=== PATIENT | male | born 1965 | race Caucasian/White ===

== ENCOUNTER 2024-04-14 08:41 | Inpatient (IN) | payer OTHER ==
[~2024-04-14] VITALS: Ht 162.6 cm; Wt 47.6 kg
[2024-04-14] MEDS ORDERED: MAGN400O6 PO (09:35)
[2024-04-14] MEDS ORDERED: FOLI0.4T6 PO (09:35)
[2024-04-14] MEDS ORDERED: ONDA-97 PO (09:35)
[2024-04-14] MEDS ORDERED: QUET25TA PO (09:35)
[2024-04-14] MEDS ORDERED: METF-441 PO (09:35)
[2024-04-14] MEDS ORDERED: CRAN3875 PO (09:35)
[2024-04-14] MEDS ORDERED: FERR300L PO (09:35)
[2024-04-14] MEDS ORDERED: ACET-868 PO (09:35)
[2024-04-14] MEDS ORDERED: ACET-2605 PO (09:35)
[2024-04-14] MEDS ORDERED: TAMS-12 PO (09:35)
[2024-04-14] MEDS ORDERED: IPRA3AMP22 IH (09:35)
[2024-04-14] MEDS ORDERED: SENN-18 PO (09:35)
[2024-04-14] MEDS ORDERED: ZINC220C6 PO (09:35)
[2024-04-14] MEDS ORDERED: PROTEIN LIQUID PO (09:35)
[2024-04-14] MEDS ORDERED: DOCU100T2 PO (09:35)
[2024-04-14] MEDS ORDERED: ACET-2030 PO (09:35)
[2024-04-14] MEDS ORDERED: LOSA25TA27 PO (09:35)
[2024-04-14] MEDS ORDERED: MULT-225 PO (09:35)
[2024-04-14] MEDS ORDERED: NA P133E RC (09:35)
[2024-04-14] MEDS ORDERED: ENOX40DI9 SQ (09:35)
[2024-04-14] MEDS ORDERED: BENZ-13 PO (09:35)
[2024-04-14] MEDS ORDERED: BISA10SU11 RC (09:35)
[2024-04-14] MEDS ORDERED: POLY17PO4 PO (09:35)
[2024-04-14] MEDS ORDERED: ASCO-352 PO (09:35)
[2024-04-14 09:49] LABS: BASOPHILS % (AUTO) 0.4 % (0.0-2.0); EOSINOPHILS % (AUTO) 0.1 % (0.0-6.0); HEMATOCRIT 24 % (39-51); HEMOGLOBIN 8.1 g/dL (13.5-17.5); LYMPHOCYTES # (AUTO) 1.2 K/uL (0.8-4.8); MEAN CORPUSCULAR HEMOGLOBIN 31 PG (26.0-33.0); MEAN CORPUSCULAR HGB CONC 33 g/dl (31.0-36.0); MEAN CORPUSCULAR VOLUME 95 fL (80-96); MONOCYTES # (AUTO) 0.5 K/uL (0.1-1.30); MONOCYTES % (AUTO) 6.2 % (2.0-12.0); NEUTROPHILS # (AUTO) 6.1 K/uL (1.8-8.9); NEUTROPHILS % (AUTO) 78.3 % (43.0-81.0); PLATELET COUNT (AUTO) 545 K/uL (150-450); RED BLOOD CELL COUNT(AUTO) 2.57 MIL/uL (4.5-6.0); RED CELL DISTRIBUTION WIDTH 15.4 % (11.5-15.0); WHITE BLOOD COUNT (AUTO) 7.8 K/uL (4.3-11.0)
[2024-04-14 09:57] LABS: CALCIUM, SERUM 9.5 mg/dL (8.5-10.1); CARBON DIOXIDE 28 mmol/L (21-32); CHLORIDE 103 mmol/L (98-107); CREATININE 0.6 mg/dL (0.6-1.3); GLUCOSE 93 mg/dL (74-106); POTASSIUM 4.1 mmol/L (3.5-5.1); SODIUM SERUM 137 mmol/L (136-145); UREA NITROGEN, BLOOD 19 mg/dL (7-18)
[2024-04-14 10:03] LABS: ALANINE AMINOTRANSFERASE 24 U/L (12-78); ALBUMIN 1.6 g/dL (3.4-5.0); ALKALINE PHOSPHATASE 204 U/L (46-116); ASPARTATE AMINOTRANSFERASE 13 U/L (15-37); BILIRUBIN,DIRECT 0.2 mg/dL (0.0-0.2); LIPASE 11 U/L (16-77); TOTAL PROTEIN, SERUM 6.9 g/dL (6.4-8.2)
[2024-04-14] MEDS ORDERED: PIPERACI/TAZO 3.375GM/D5W 50ML PB IV ONE (11:01)
[2024-04-14] MEDS: IV NS 0.9% 1,000 ML BAG IV ONE (11:14)
[2024-04-14] MEDS: PIPERACILLIN /TAZOBACTAM 3.375 G in IV D5W 50 ML IV ONE (11:20)
[2024-04-14 12:00] LABS: APPEARANCE,URINE SLIGHTLY CLOUDY (CLEAR); BILIRUBIN,URINE NEGATIVE (NEGATIVE); BLOOD, URINE TRACE-INTA Ery/uL (NEGATIVE); COLOR,URINE YELLOW (YELLOW); KETONES,URINE TRACE mg/dL (NEGATIVE); LEUKOCYTE ESTERASE ,URINE 2+ (NEGATIVE); NITRITE, URINE POSITIVE (NEGATIVE); PROTEIN,URINE TRACE mg/dl (NEGATIVE); UGLUCOSE NEGATIVE (NEGATIVE)
[2024-04-14 12:01] LABS: ADD URINE CULTURE YES; BACTERIA,URINE Few /HPF (None Seen); SQUAMOUS EPITHELIAL CELL,UR Rare /HPF (None Seen)
[2024-04-14] MEDS ORDERED: Z GUARD REMEDY 4 OZ OINT TP PRN (12:30)
[2024-04-14] MEDS ORDERED: MAG HYDROX/AL HYDROX/SIMETH 30 ML UDC PO PRN (12:30)
[2024-04-14] MEDS ORDERED: MAGNESIUM HYDROXIDE 30 ML UDC PO PRN ×2 (12:30→13:00)
[2024-04-14] MEDS ORDERED: HYDROCODONE/APAP 5/325MG TABLET PO PRN (12:30)
[2024-04-14] MEDS ORDERED: ONDANSETRON HCL/PF 4 MG/2 ML VIAL IVP PRN (12:30)
[2024-04-14] MEDS ORDERED: ACETAMINOPHEN 325 MG TABLET PO PRN ×2 (12:30→13:00)
[2024-04-14] MEDS: AZITHROMYCIN 500 MG in IV D5W 250 ML IV ONE (12:45)
[2024-04-14] MEDS ORDERED: NA PHOS,M-B/NA PHOS,DI-BA 1 EA ENEMA RC PRN (13:00)
[2024-04-14] MEDS ORDERED: HOME MED MISCELLANEOUS XX SCH (13:00)
[2024-04-14] MEDS ORDERED: BISACODYL SUPP (10 MG) 10 MG/SUPP.RECT SUPP.RECT RC PRN (13:00)
[2024-04-14] MEDS ORDERED: DEXTROSE 50%-WATER 50 ML DISP.SYRIN IV PRN (13:00)
[2024-04-14] MEDS ORDERED: ALBUTEROL FS 2.5 MG/3 ML VIAL.NEB NEB PRN (13:00)
[2024-04-14] MEDS ORDERED: ACETAMINOPHEN ES 500 MG TABLET PO PRN (13:00)
[2024-04-14] MEDS ORDERED: BENZONATATE 100 MG CAPSULE PO PRN (13:00)
[2024-04-14] MEDS: VANCOMYCIN 1 GM in IV D5W 250 ML IV ONE (13:45)
[2024-04-14] MEDS: BLOOD SUGAR DIAGNOSTIC 1 EACH STRIP IN SCH (14:33)
[2024-04-14] MEDS: FERROUS SULFATE UDC 300 MG/5 ML UDC PO SCH (17:19)
[2024-04-14] MEDS: TAMSULOSIN 0.4 MG CAP.SR.24H PO SCH (17:20)
[2024-04-14] MEDS: PROSOURCE / PROSTAT (PYXIS) 30 ML UDC PO SCH (17:21)
[2024-04-14] MEDS: ZOSYN IVPB 3.375 G in IV D5W 50ml IV SCH (17:36)
[2024-04-14] MEDS: INSULIN REGULAR, HUMAN 100 UNIT/ML 3 ML VIAL SQ PRN (17:37)
[2024-04-14 19:42] VITALS: O2SAT 97
[2024-04-14 20:00] VITALS: BP 133/82; TEMP 97.7; O2SAT 99
[2024-04-14] MEDS: QUETIAPINE FUMARATE 25 MG TABLET PO SCH (21:53)
[2024-04-14] MEDS: SENNOSIDES 8.6 MG TABLET PO SCH (21:54)
[2024-04-15] VITALS (10 sets, daily range): BP systolic 104–134; BP diastolic 63–89; TEMP 97.5–97.9; O2SAT 99–100
[2024-04-15] MEDS: IV NS 0.9% 1,000 ML IV PRN (00:43)
[2024-04-15 07:11] LABS: BASOPHILS % (AUTO) 0.4 % (0.0-2.0); EOSINOPHILS % (AUTO) 0.2 % (0.0-6.0); HEMATOCRIT 21 % (39-51); HEMOGLOBIN 7.1 g/dL (13.5-17.5); LYMPHOCYTES # (AUTO) 1.2 K/uL (0.8-4.8); LYMPHOCYTES % (AUTO) 19.6 % (20.0-44.0); MEAN CORPUSCULAR HEMOGLOBIN 32 PG (26.0-33.0); MEAN CORPUSCULAR HGB CONC 35 g/dl (31.0-36.0); MEAN CORPUSCULAR VOLUME 92 fL (80-96); MONOCYTES # (AUTO) 0.5 K/uL (0.1-1.30); MONOCYTES % (AUTO) 8.6 % (2.0-12.0); NEUTROPHILS # (AUTO) 4.3 K/uL (1.8-8.9); NEUTROPHILS % (AUTO) 71.2 % (43.0-81.0); PLATELET COUNT (AUTO) 479 K/uL (150-450); RED BLOOD CELL COUNT(AUTO) 2.23 MIL/uL (4.5-6.0); RED CELL DISTRIBUTION WIDTH 15.1 % (11.5-15.0); WHITE BLOOD COUNT (AUTO) 6.1 K/uL (4.3-11.0)
[2024-04-15 07:35] LABS: CALCIUM, SERUM 8.6 mg/dL (8.5-10.1); CREATININE 0.6 mg/dL (0.6-1.3); MAGNESIUM 1.7 mg/dL (1.8-2.4); POTASSIUM 4.2 mmol/L (3.5-5.1)
[2024-04-15] MEDS: BLOOD SUGAR DIAGNOSTIC 1 EACH STRIP IN SCH (07:57)
[2024-04-15] MEDS: DOCUSATE SODIUM LIQ 100 MG/10 ML UDC PO SCH (08:24)
[2024-04-15] MEDS: POLYETHYLENE GLYCOL 3350 17 GM POWD.PACK PO SCH (08:24)
[2024-04-15] MEDS: PANTOPRAZOLE 40 MG TABLET.DR PO SCH (08:25)
[2024-04-15] MEDS: MULTIVITAMINS,THERAGRAN 1 UDTAB TABLET PO SCH (08:25)
[2024-04-15] MEDS: ASPIRIN 81 MG TAB.CHEW PO SCH (08:25)
[2024-04-15] MEDS: FOLIC ACID 1 MG TABLET PO SCH (08:25)
[2024-04-15] MEDS: ASCORBIC ACID 500 MG TABLET PO SCH (08:26)
[2024-04-15] MEDS: ACETAMINOPHEN ES 500 MG TABLET PO SCH (08:26)
[2024-04-15] MEDS: ZINC SULFATE 220 MG CAPSULE PO SCH (08:26)
[2024-04-15] MEDS: LOSARTAN POTASSIUM 25 MG TABLET PO SCH (08:27)
[2024-04-15] MEDS: METFORMIN 850 MG TABLET PO SCH (08:28)
[2024-04-15] MEDS: GLUCERNA SHAKE 237 ML CAN PO SCH (08:36)
[2024-04-15] MEDS: ENOXAPARIN SODIUM 40 MG/0.4 ML DISP.SYRIN SQ SCH (08:38)
[2024-04-15] MEDS: MAGNESIUM OXIDE 400 MG TABLET PO ONE (11:13)
[2024-04-15] MEDS: AZITHROMYCIN 500 MG in IV D5W 250 ML IV SCH (13:10)
[2024-04-15 13:31] LABS: HEMOGLOBIN 6.7 g/dL (13.5-17.5)
[2024-04-15] MEDS: INSULIN REGULAR, HUMAN 100 UNIT/ML 3 ML VIAL SQ PRN (21:59)
[2024-04-16] VITALS (7 sets, daily range): BP systolic 120–138; BP diastolic 75–90; TEMP 97–98.5; O2SAT 99–100
[2024-04-16] MEDS: ZOSYN IVPB 3.375 G in IV D5W 50ml IV SCH (02:16)
[2024-04-16 07:04] LABS: HEMOGLOBIN 9.3 g/dL (13.5-17.5)
[2024-04-16] MEDS: PANTOPRAZOLE 40 MG VIAL IV SCH (08:27)
[2024-04-16 13:52] LABS: HEMOGLOBIN 9.1 g/dL (13.5-17.5)
[2024-04-16 18:29] LABS: OCCULT BLOOD STOOL NEGATIVE (NEGATIVE)
[2024-04-17] VITALS: BP 131/67; TEMP 97.4; O2SAT 100
[2024-04-17 03:47] VITALS: O2SAT 99
[2024-04-17 07:05] LABS: HEMOGLOBIN 9.7 g/dL (13.5-17.5)
[2024-04-17 08:00] VITALS: BP 139/89; TEMP 97.5; O2SAT 93
[2024-04-17] MEDS: PANTOPRAZOLE 40 MG/PACK PACK PO SCH (08:47)
[2024-04-17 13:17] LABS: HEMOGLOBIN 9.7 g/dL (13.5-17.5)
[2024-04-17 16:00] VITALS: BP 103/70; TEMP 96.1; O2SAT 97
[2024-04-17 21:19] LABS: HEMOGLOBIN 9.3 g/dL (13.5-17.5)
[2024-04-18] VITALS: BP 122/79; TEMP 97.5; O2SAT 98
[2024-04-18 04:19] VITALS: O2SAT 100
[2024-04-18 08:00] VITALS: BP 129/83; TEMP 96.8; O2SAT 96
[2024-04-18] MEDS ORDERED: PANT40SU2 PO (08:10)
[2024-04-18] MEDS ORDERED: ASPI-1169 PO (08:10)
[2024-04-18] MEDS ORDERED: DOXY100T2 PO (08:10)
[2024-04-18] MEDS ORDERED: METF-441 PO (08:10)
[2024-04-18 08:18] VITALS: O2SAT 96
[2024-04-18] MEDS: MEROPENEM 500 MG in IV NS 0.9% 50 ML IV SCH (12:14)
[2024-04-18 13:30] LABS: HEMOGLOBIN 9.1 g/dL (13.5-17.5)
[2024-04-18 16:00] VITALS: BP 109/59; TEMP 97.1; O2SAT 99
== END 2024-04-18 17:55 | DRG 137 ==
LOC: ER 08:43 → TELE1 16:29 → MEDSG1 04-15 10:56
PROVIDERS: ADMIT Nurse Practitioner Acute Care; ATTEND Internal Medicine
PROC: 30233N1 Transfusion of Nonautologous Red Blood Cells into Peripheral Vein, Percutaneous Approach (ICD-10-PCS; principal; 2024-04-15)
DX: J15.69 Pneumonia due to other Gram-negative bacteria (principal); J96.01 Acute respiratory failure with hypoxia; G93.49 Other encephalopathy; E43 Unspecified severe protein-calorie malnutrition; R64 Cachexia; D68.59 Other primary thrombophilia; F29 Unspecified psychosis not due to a substance or known physiological condition; F01.50 Vascular dementia, unspecified severity, without behavioral disturbance, psychotic disturbance, mood disturbance, and anxiety; R62.7 Adult failure to thrive; E11.9 Type 2 diabetes mellitus without complications; D64.9 Anemia, unspecified; J15.9 Unspecified bacterial pneumonia; N39.0 Urinary tract infection, site not specified; I10 Essential (primary) hypertension; N40.1 Benign prostatic hyperplasia with lower urinary tract symptoms; Z79.84 Long term (current) use of oral hypoglycemic drugs; Z86.73 Personal history of transient ischemic attack (TIA), and cerebral infarction without residual deficits; Z74.01 Bed confinement status; M62.50 Muscle wasting and atrophy, not elsewhere classified, unspecified site; Z74.09 Other reduced mobility; Z68.1 Body mass index [BMI] 19.9 or less, adult; B96.20 Unspecified Escherichia coli [E. coli] as the cause of diseases classified elsewhere
CPT/HCPCS: 36415; 71045-TC; 80048-TC; 80061-TC; 80076-TC; 81001; 82272-TC; 82962-TC; 83605-TC; 83690-TC; 83735-TC; 83880; 84100-TC; 84484-TC; 85025-TC; 85027-TC; 86850-TC; 87040-TC; 87081-TC; 87086-TC; 92526; 92611-TC; 94760-TC; 94762-TC; 94799-TC; 97110-TC; 97530-TC; 97535-TC; A4223; C9113; G0378; J0456; J1650; J1815; J2185; J2543; J3370; J7030; J7050; J7060; P9016

== ENCOUNTER 2025-06-23 22:29 | Emergency (ER) | payer MEDICAID ==
[~2025-06-23] VITALS: Ht 162.6 cm; Wt 47.6 kg
[~2025-06-23 22:29] MED LIST: ACET-2605 PO; ACET-868 PO; ASCO-352 PO; ASPI-1169 PO; BENZ-13 PO; BISA10SU11 RC; CRAN3875 PO; DOCU100T2 PO; DOXY100T2 PO; ENOX40DI9 SQ; FERR300L PO; FOLI0.4T6 PO; IPRA3AMP22 IH; LOSA25TA27 PO; MAGN400O6 PO; METF-441 PO; MULT-225 PO; NA P133E RC; ONDA-97 PO; PANT40SU2 PO; POLY17PO4 PO; PROTEIN LIQUID PO; QUET25TA PO; SENN-18 PO; TAMS-12 PO; ZINC220C6 PO
[2025-06-23 23:30] LABS: PLATELET COUNT (AUTO) 195 K/uL (150-450); RED BLOOD CELL COUNT(AUTO) 3.83 MIL/uL (4.5-6.0); RED CELL DISTRIBUTION WIDTH 14.0 % (11.5-15.0); WHITE BLOOD COUNT (AUTO) 7.6 K/uL (4.3-11.0)
[2025-06-23 23:37] LABS: CALCIUM, SERUM 9.8 mg/dL (8.5-10.1); CREATININE 1.0 mg/dL (0.6-1.3); SODIUM SERUM 147.0 mmol/L (136-145); UREA NITROGEN, BLOOD 43.0 mg/dL (7-18)
[2025-06-24 00:18] LABS: APPEARANCE,URINE CLEAR (CLEAR); BLOOD, URINE NEGATIVE Ery/uL (NEGATIVE); LEUKOCYTE ESTERASE ,URINE NEGATIVE (NEGATIVE); NITRITE, URINE NEGATIVE (NEGATIVE); UGLUCOSE 3+ mg/dL (NEGATIVE)
[2025-06-24 00:22] LABS: ASPARTATE AMINOTRANSFERASE 6.0 U/L (15-37); TOTAL PROTEIN, SERUM 7.7 g/dL (6.4-8.2)
[2025-06-24 00:23] LABS: ADD URINE CULTURE NO; SQUAMOUS EPITHELIAL CELL,UR Few /HPF (None Seen)
[2025-06-24] MEDS ORDERED: DOXY-326 PO (01:02)
[2025-06-24] MEDS ORDERED: AMOX-430 PO (01:02)
[2025-06-24] MEDS ORDERED: CEFTRIAXONE 1GM BAG (ER ONLY) 50 ML IV ONE (01:04)
[2025-06-24] MEDS ORDERED: INSULIN REGULAR, HUMAN 100 UNIT/ML 10 ML VIAL ONE (01:05)
[2025-06-24] MEDS ORDERED: AZITHROMYCIN 500 MG VIAL ONE (01:05)
[2025-06-24] MEDS: IV NS 0.9% 1,000 ML BAG IV ONE (01:10)
[2025-06-24] MEDS: INSULIN REGULAR, HUMAN 100 UNIT/ML 10 ML VIAL IV ONE (01:17)
[2025-06-24] MEDS: CEFTRIAXONE 1 G in IV D5W 50 ML IV ONE (01:18)
[2025-06-24] MEDS: AZITHROMYCIN 500 MG in IV D5W 250 ML IV ONE (01:55)
[2025-06-24 06:03] VITALS: BP 131/85; TEMP 98.4; O2SAT 99
== END 2025-06-24 06:03 ==
LOC: ER 22:31
DX: J18.9 Pneumonia, unspecified organism (principal); I10 Essential (primary) hypertension; E11.65 Type 2 diabetes mellitus with hyperglycemia; E78.5 Hyperlipidemia, unspecified; I44.4 Left anterior fascicular block; Z79.82 Long term (current) use of aspirin; Z79.84 Long term (current) use of oral hypoglycemic drugs; Z79.899 Other long term (current) drug therapy; Z86.73 Personal history of transient ischemic attack (TIA), and cerebral infarction without residual deficits
CPT/HCPCS: 99285; 71045; 93005; 84145; 85025; 83735; 81001; 36415; 80053; 86140; 96365; 96367; 96375; 82962; J1815; J7030; J0456; A4223; J0696; J7060

== ENCOUNTER 2025-06-30 00:18 | Inpatient (IN) | payer MEDICAID ==
[~2025-06-30] VITALS: Ht 172.7 cm; Wt 62.6 kg
[~2025-06-30 00:18] MED LIST changes: +AMOX-430 PO; +DOXY-326 PO
[2025-06-30] MEDS ORDERED: PIPERACI/TAZO 3.375GM/D5W 50ML PB IV ONE (01:10)
[2025-06-30] MEDS ORDERED: ACETAMINOPHEN 650 MG/SUPP.RECT RC ONE (01:11)
[2025-06-30 01:19] LABS: CALCIUM, SERUM 10.6 mg/dL (8.5-10.1); CREATININE 2.1 mg/dL (0.6-1.3); PLATELET COUNT (AUTO) 312 K/uL (150-450); RED BLOOD CELL COUNT(AUTO) 3.90 MIL/uL (4.5-6.0); RED CELL DISTRIBUTION WIDTH 15.7 % (11.5-15.0); SODIUM SERUM 152 mmol/L (136-145); UREA NITROGEN, BLOOD 79 mg/dL (7-18); WHITE BLOOD COUNT (AUTO) 22.6 K/uL (4.3-11.0)
[2025-06-30] MEDS: PIPERACILLIN /TAZOBACTAM 3.375 G in IV D5W 50 ML IV ONE (01:20)
[2025-06-30] MEDS: IV NS 0.9% 1,000 ML BAG IV ONE ×2 (01:20→02:52)
[2025-06-30] MEDS: ACETAMINOPHEN ES 500 MG TABLET PO ONE (01:20)
[2025-06-30 01:23] LABS: APPEARANCE,URINE SLIGHTLY CLOUDY (CLEAR); BLOOD, URINE NEGATIVE Ery/uL (NEGATIVE); LEUKOCYTE ESTERASE ,URINE TRACE (NEGATIVE); NITRITE, URINE NEGATIVE (NEGATIVE); UGLUCOSE 1+ mg/dL (NEGATIVE)
[2025-06-30 01:25] LABS: ASPARTATE AMINOTRANSFERASE 11 U/L (15-37); TOTAL PROTEIN, SERUM 7.8 g/dL (6.4-8.2)
[2025-06-30] MEDS: ACETAMINOPHEN 650 MG/SUPP.RECT RC ONE (01:28)
[2025-06-30 01:30] LABS: INR 1.36 (0.91-1.10); LACTIC ACID 4.4 mmol/L (0.4-2.0)
[2025-06-30 01:34] LABS: ADD URINE CULTURE YES; SQUAMOUS EPITHELIAL CELL,UR Few /HPF (None Seen)
[2025-06-30] MEDS ORDERED: ONDANSETRON HCL/PF 4 MG/2 ML VIAL IVP PRN (02:30)
[2025-06-30] MEDS ORDERED: Z GUARD REMEDY 4 OZ OINT TP PRN (02:30)
[2025-06-30] MEDS ORDERED: ACETAMINOPHEN 650 MG/SUPP.RECT RC PRN (02:30)
[2025-06-30] MEDS ORDERED: DOSING PER PHARMACY-CEFEPIME IVPB XX PRN (02:30)
[2025-06-30] MEDS ORDERED: DEXTROSE 50%-WATER 50 ML DISP.SYRIN IV PRN (03:00)
[2025-06-30 04:00] VITALS: BP 102/76; TEMP 98.8; O2SAT 94
[2025-06-30] MEDS: IV NS 0.9% 1,000 ML IV SCH (04:25)
[2025-06-30] MEDS: HEPARIN SODIUM, PORCINE 5000 UNITS/1 ML VIAL SQ SCH (04:31)
[2025-06-30 07:00] LABS: CALCIUM, SERUM 9.1 mg/dL (8.5-10.1); CREATININE 1.9 mg/dL (0.6-1.3); PHOSPHORUS 3.0 mg/dL (2.5-4.9); UREA NITROGEN, BLOOD 78.0 mg/dL (7-18)
[2025-06-30] MEDS: BLOOD SUGAR DIAGNOSTIC 1 EACH STRIP IN SCH (07:12)
[2025-06-30] MEDS: INSULIN REGULAR, HUMAN 100 UNIT/ML 3 ML VIAL SQ PRN (07:13)
[2025-06-30] MEDS ORDERED: CEFEPIME 2 GM in IV D5W 100 ML IV ONE (07:30)
[2025-06-30] MEDS: CEFEPIME 2 GM in IV D5W 100 ML IV SCH (07:31)
[2025-06-30 07:33] LABS: SODIUM SERUM 160.0 mmol/L (136-145)
[2025-06-30] MEDS: PANTOPRAZOLE 40 MG VIAL IV SCH (08:14)
[2025-06-30 08:51] VITALS: BP 118/79; TEMP 98.8; O2SAT 97
[2025-06-30] MEDS ORDERED: GABA-532 PO (09:43)
[2025-06-30] MEDS ORDERED: QUET50TA PO (09:43)
[2025-06-30] MEDS ORDERED: IBUP-1490 PO (09:43)
[2025-06-30] MEDS ORDERED: METF-442 PO (09:43)
[2025-06-30] MEDS ORDERED: DIVA125C2 PO (09:43)
[2025-06-30] MEDS ORDERED: MIRT7.5T10 PO (09:43)
[2025-06-30] MEDS ORDERED: ROSU20TA32 PO (09:43)
[2025-06-30] MEDS ORDERED: APIX2.5T PO (09:46)
[2025-06-30] MEDS: Magnesium 1GM/D5W 100ML PREMIX 100 ML IV SCH (11:10)
[2025-06-30] MEDS: IV D5W 1,000 ML IV PRN (11:21)
[2025-06-30 12:00] VITALS: BP 113/78; TEMP 97.9; O2SAT 96
[2025-06-30 16:00] VITALS: BP 127/88; TEMP 98; O2SAT 95
[2025-06-30 20:00] VITALS: BP 116/85; TEMP 99; O2SAT 97
[2025-07-01] VITALS: BP 129/85; TEMP 98.2; O2SAT 96
[2025-07-01 04:00] VITALS: BP 113/81; TEMP 98.8; O2SAT 96
[2025-07-01 07:44] LABS: PLATELET COUNT (AUTO) 244 K/uL (150-450); RED BLOOD CELL COUNT(AUTO) 3.52 MIL/uL (4.5-6.0); RED CELL DISTRIBUTION WIDTH 13.7 % (11.5-15.0); WHITE BLOOD COUNT (AUTO) 14.5 K/uL (4.3-11.0)
[2025-07-01 08:00] VITALS: BP 120/86; TEMP 99; O2SAT 95
[2025-07-01 08:07] LABS: CALCIUM, SERUM 9.5 mg/dL (8.5-10.1); CREATININE 1.0 mg/dL (0.6-1.3); SODIUM SERUM 151.0 mmol/L (136-145); UREA NITROGEN, BLOOD 30.0 mg/dL (7-18)
[2025-07-01] MEDS: Magnesium 1GM/D5W 100ML PREMIX 100 ML IV SCH (09:28)
[2025-07-01 16:00] VITALS: BP 135/86; TEMP 97.7; O2SAT 95
[2025-07-02] VITALS: BP 109/79; TEMP 97.5; O2SAT 98
[2025-07-02 06:34] LABS: PLATELET COUNT (AUTO) 237 K/uL (150-450); RED BLOOD CELL COUNT(AUTO) 3.49 MIL/uL (4.5-6.0); RED CELL DISTRIBUTION WIDTH 13.1 % (11.5-15.0); WHITE BLOOD COUNT (AUTO) 13.5 K/uL (4.3-11.0)
[2025-07-02 06:55] LABS: CALCIUM, SERUM 8.6 mg/dL (8.5-10.1); CREATININE 0.7 mg/dL (0.6-1.3); SODIUM SERUM 142.0 mmol/L (136-145); UREA NITROGEN, BLOOD 13.0 mg/dL (7-18)
[2025-07-02 08:00] VITALS: BP 133/96; TEMP 97.9; O2SAT 98
[2025-07-02 16:00] VITALS: BP 114/80; TEMP 97.1; O2SAT 98
[2025-07-02 20:00] VITALS: BP 129/81; TEMP 97.9; O2SAT 91
[2025-07-03 04:00] VITALS: BP 118/81; TEMP 97.5; O2SAT 96
[2025-07-03 08:00] VITALS: BP 123/90; TEMP 97.9; O2SAT 98
[2025-07-03 10:39] LABS: PLATELET COUNT (AUTO) 256 K/uL (150-450); RED BLOOD CELL COUNT(AUTO) 3.50 MIL/uL (4.5-6.0); RED CELL DISTRIBUTION WIDTH 13.1 % (11.5-15.0); WHITE BLOOD COUNT (AUTO) 11.7 K/uL (4.3-11.0)
[2025-07-03 10:51] LABS: CALCIUM, SERUM 8.8 mg/dL (8.5-10.1); CREATININE 0.7 mg/dL (0.6-1.3); SODIUM SERUM 139.0 mmol/L (136-145); UREA NITROGEN, BLOOD 7.0 mg/dL (7-18)
[2025-07-03 16:00] VITALS: BP 129/92; TEMP 97.9; O2SAT 95
[2025-07-03] MEDS ORDERED: JEVITY 1.2 CAL 1,000 ML BOTTLE GT PRN (17:30)
[2025-07-03] MEDS: GLUCERNA 1.2 1,000 ML BOTTLE NG SCH (18:16)
[2025-07-03 20:00] VITALS: BP 118/95; TEMP 97.9; O2SAT 95
[2025-07-04 04:00] VITALS: BP 125/88; TEMP 98.1; O2SAT 95
[2025-07-04 08:00] VITALS: BP 128/87; TEMP 98; O2SAT 96
[2025-07-04 09:29] LABS: PLATELET COUNT (AUTO) 231 K/uL (150-450); RED BLOOD CELL COUNT(AUTO) 3.45 MIL/uL (4.5-6.0); RED CELL DISTRIBUTION WIDTH 13.4 % (11.5-15.0); WHITE BLOOD COUNT (AUTO) 10.7 K/uL (4.3-11.0)
[2025-07-04 09:55] LABS: CALCIUM, SERUM 8.4 mg/dL (8.5-10.1); CREATININE 0.6 mg/dL (0.6-1.3); PHOSPHORUS 2.7 mg/dL (2.5-4.9); SODIUM SERUM 137.0 mmol/L (136-145); UREA NITROGEN, BLOOD 7.0 mg/dL (7-18)
[2025-07-04 16:00] VITALS: BP 122/86; TEMP 98; O2SAT 97
[2025-07-04 20:00] VITALS: BP 126/86; TEMP 97.5; O2SAT 95
[2025-07-05 04:00] VITALS: BP 132/84; TEMP 97.8; O2SAT 95
[2025-07-05 07:52] LABS: CALCIUM, SERUM 8.9 mg/dL (8.5-10.1); CREATININE 0.6 mg/dL (0.6-1.3); PHOSPHORUS 2.6 mg/dL (2.5-4.9); SODIUM SERUM 137.0 mmol/L (136-145); UREA NITROGEN, BLOOD 11.0 mg/dL (7-18)
[2025-07-05 08:00] VITALS: BP 119/79; TEMP 98.2; O2SAT 97
[2025-07-05 08:03] LABS: PLATELET COUNT (AUTO) 259 K/uL (150-450); RED BLOOD CELL COUNT(AUTO) 3.44 MIL/uL (4.5-6.0); RED CELL DISTRIBUTION WIDTH 13.3 % (11.5-15.0); WHITE BLOOD COUNT (AUTO) 11.5 K/uL (4.3-11.0)
[2025-07-05] MEDS: PANTOPRAZOLE 40 MG/PACK PACK GT SCH (09:00)
[2025-07-05] MEDS: POTASSIUM CHLORIDE 20 MEQ POWDER PACKET GT ONE (10:04)
[2025-07-05 16:00] VITALS: BP 117/83; TEMP 98.2; O2SAT 96
[2025-07-05 20:00] VITALS: BP 124/77; TEMP 99.3; O2SAT 93
[2025-07-06 04:00] VITALS: BP 115/76; TEMP 99; O2SAT 93
[2025-07-06 07:30] VITALS: BP 145/91; TEMP 98.4; O2SAT 97
[2025-07-06 07:56] LABS: CALCIUM, SERUM 8.6 mg/dL (8.5-10.1); CREATININE 0.7 mg/dL (0.6-1.3); PHOSPHORUS 2.4 mg/dL (2.5-4.9); SODIUM SERUM 139.0 mmol/L (136-145); UREA NITROGEN, BLOOD 13.0 mg/dL (7-18)
[2025-07-06 08:00] VITALS: BP 145/91; TEMP 98.4; O2SAT 97
[2025-07-06 08:07] LABS: PLATELET COUNT (AUTO) 277 K/uL (150-450); RED BLOOD CELL COUNT(AUTO) 3.21 MIL/uL (4.5-6.0); RED CELL DISTRIBUTION WIDTH 13.2 % (11.5-15.0); WHITE BLOOD COUNT (AUTO) 10.6 K/uL (4.3-11.0)
[2025-07-06 09:16] LABS: LYMPHOCYTES % (MANUAL) 27 % (16-48); MONOCYTES % (MANUAL) 3 % (0-11.0); NEUTROPHILS % (MANUAL) 70 (42-76); PLATELET ESTIMATE ADEQUATE
[2025-07-06] MEDS: LORAZEPAM 0.5 MG TABLET PO ONE (13:47)
[2025-07-06 16:00] VITALS: BP 129/86; TEMP 98.1; O2SAT 100
[2025-07-06] MEDS ORDERED: ANESTHESIA TRAY IN PYXIS 1 EA TRAY MC ONE (16:05)
[2025-07-06] MEDS: Sodium Phosphate 15 MMOL in IV NS 0.9% 245 ML IV SCH (16:14)
[2025-07-06 20:00] VITALS: BP 117/77; TEMP 97.9; O2SAT 99
[2025-07-07 04:00] VITALS: BP 136/90; TEMP 97; O2SAT 99
[2025-07-07 08:00] VITALS: BP 134/82; TEMP 97.9; O2SAT 97
[2025-07-07] MEDS ORDERED: GLUCERNA 1.2 1,000 ML BOTTLE NG PRN (10:00)
[2025-07-07] MEDS ORDERED: AMOX-430 PO (11:00)
== END 2025-07-07 14:15 | DRG 720 ==
LOC: ER 00:21 → TELE-TD 02:54 → TELE1 13:54 → MEDSG1 07-01 09:44
PROVIDERS: ADMIT Nurse Practitioner Acute Care; ATTEND Nurse Practitioner Acute Care
PROC: 0DH63UZ Insertion of Feeding Device into Stomach, Percutaneous Approach (ICD-10-PCS; principal; 2025-07-06 20:45)
DX: A41.9 Sepsis, unspecified organism (principal); G93.41 Metabolic encephalopathy; E87.20 Acidosis, unspecified; D68.69 Other thrombophilia; D63.8 Anemia in other chronic diseases classified elsewhere; E87.0 Hyperosmolality and hypernatremia; E86.0 Dehydration; I48.91 Unspecified atrial fibrillation; N17.9 Acute kidney failure, unspecified; E87.5 Hyperkalemia; E11.65 Type 2 diabetes mellitus with hyperglycemia; Z79.84 Long term (current) use of oral hypoglycemic drugs; I10 Essential (primary) hypertension; Z86.73 Personal history of transient ischemic attack (TIA), and cerebral infarction without residual deficits; R13.10 Dysphagia, unspecified; N40.0 Benign prostatic hyperplasia without lower urinary tract symptoms; E87.8 Other disorders of electrolyte and fluid balance, not elsewhere classified; Z20.822 Contact with and (suspected) exposure to COVID-19; E83.42 Hypomagnesemia; N39.0 Urinary tract infection, site not specified; F01.50 Vascular dementia, unspecified severity, without behavioral disturbance, psychotic disturbance, mood disturbance, and anxiety; H70.91 Unspecified mastoiditis, right ear; Z87.01 Personal history of pneumonia (recurrent); K29.70 Gastritis, unspecified, without bleeding; Z79.82 Long term (current) use of aspirin; J44.9 Chronic obstructive pulmonary disease, unspecified
CPT/HCPCS: 36415; 43246; 70450-TC; 71045-TC; 80048-TC; 80076-TC; 81001; 82962-TC; 83605-TC; 83735-TC; 84100-TC; 84484-TC; 85025-TC; 85027-TC; 85730-TC; 87040-TC; 87081-TC; 87086-TC; A4223; A9563; G0378; J0690; J0692; J1644; J1815; J2470; J2543; J2704; J3475; J3490; J7030; J7050; J7060; J7070